=== PATIENT | male | born 1970 | race Caucasian/White ===

== ENCOUNTER 2020-12-26 17:30 | Emergency (ER) | payer OTHER ==
[~2020-12-26] VITALS: Ht 172.7 cm; Wt 133.5 kg
[2020-12-26] MEDS ORDERED: IV NORMAL SALINE 1,000ML 1,000 ML IV ONE (18:00)
--- NOTE | 2020-12-26 18:07 | PHYS DOC ---
Past History Past Medical History: Hypertension Past Surgical History: Cholecystectomy Smoking: Non-smoker Alcohol Use: Rarely Drug Use: None General Adult EDM: Chief Complaint: BLOOD IN URINE HPI: HPI: Patient is a 50 year old male with no known medical history that presents to the ED after one episode of hematuria around 1700 today. He states his urine was red in color, with no obvious clots. He does state he drinks occasionally drinks 2 liters of soda during a day. He is just wanting to get checked out because he has no history of previous episodes. No recent trauma. He denies any flank pain or urinary symptoms: urgency, dysuria, increased frequency. No fevers, chest pain, SOB, diarrhea or constipation. No tobacco or alcohol use. No recent strenuous exercise. No history of blood thinners. No other symptoms or complaints at this time. Review of Systems: Review of Systems: Constitutional: Denies fever or chills Eyes: Denies redness or eye pain HENT: Denies nasal congestion or sore throat Respiratory: Denies cough or shortness of breath Cardiovascular: Denies chest pain or palpitations GI: Denies abdominal pain, nausea, or vomiting : Denies dysuria, frequency or urgency; report hematuria Musculoskeletal: Denies back pain or joint pain Integument: Denies rash or skin lesions Neurologic: Denies headache, focal weakness or sensory changes Complete systems were reviewed and found to be within normal limits, except as documented in this note. Allergies: Allergies: Allergies Coded Allergies Type Severity Reaction Last Updated Verified No Known Drug Allergies 12/26/20 No Physical Exam: PE: Constitutional: Well developed, well nourished, no acute distress, non-toxic appearance HENT: Normocephalic, atraumatic. Slightly dry mucous membranes. Eyes: Conjunctiva normal, no discharge Neck: Normal range of motion, no tenderness, supple Lungs & Thorax: No respiratory distress, equal chest rise and fall Abdomen: Soft, no tenderness Skin: Warm, dry, no erythema, no rash Back: No tenderness, no CVA tenderness Extremities: No tenderness, ROM intact, no edema Neurologic: Alert and oriented X 3, normal motor function, normal sensory function, no focal deficits noted Psychologic: Affect normal, judgment normal Current Patient Data: Vital Signs: Vital Signs Date Time Temp Pulse Resp B/P (MAP) Pulse Ox O2 Delivery O2 Flow Rate FiO2 12/26/20 17:45 98.0 80 16 150/97 (114) 95 Room Air Radiology/Procedures: Radiology/Procedures: PROCEDURE: CT ABDOMEN PELVIS WO CONTRAST Abdominal and Pelvis CT, Without Contrast: History: Reason: hematuria / Spl. Instructions: / History: Comparison: None. Procedure: Axial images are obtained of the abdomen and pelvis, without IV or oral contrast. Oral Contrast: No Findings: There is been prior cholecystectomy. The appendix is normal. There is bilateral fat-containing inguinal canal hernias. Evaluation of solid organs is limited without contrast. Liver: Normal. Spleen: Normal. Pancreas: Normal. Adrenal Glands: Normal. Kidneys: Normal. There is no free air or free fluid. There is no lymphadenopathy. The urinary bladder appears normal. There is no pericolonic inflammation identified. The appendix is normal. Impression: No acute findings. End impression PQRS Compliance Statement: One or more of the following individualized dose reduction techniques were utilized for this examination: 1. Automated exposure control 2. Adjustment of the mA and/or kV according to patient size 3. Use of iterative reconstruction technique Electronically signed by: Gino Sweeney III, MD (12/26/2020 6:35 PM) [facility] Course & Med Decision Making: Course & Med Decision Making Pertinent Labs and Imaging studies reviewed. (See chart for details) Patient is a 50 year old male that presents after episode of gross hematuria. UA with cofirmation of hematuria. NO signs of infection noted. BUN/Creat stable. H/H stable. CT abd/pelvis without acute process. IVF hydration given. Patient stable for discharge with outpatient follow-up with PCP/Urologist. Discussed findings and plan with patient, who acknowledges understanding and agreement. Nicole Disclaimer: Nicole Disclaimer: This electronic medical record was generated, in whole or in part, using a voice recognition dictation system. Departure Departure: Impression: Primary Impression: Hematuria Qualified Codes: R31.9 - Hematuria, unspecified Disposition: 01 DC HOME SELF CARE/HOMELESS Condition: STABLE Patient Instructions: Hematuria, Adult Additional Instructions: Call your insurance for a referral for an Urologist for further evaluation and treatment. MARIO SANTAMARIA DO Dec 26, 2020 18:07
--- NOTE | 2020-12-26 18:38 | RAD ---
Abdominal and Pelvis CT, Without Contrast: History: Reason: hematuria / Spl. Instructions: / History: Comparison: None. Procedure: Axial images are obtained of the abdomen and pelvis, without IV or oral contrast. Oral Contrast: No Findings: There is been prior cholecystectomy. The appendix is normal. There is bilateral fat-containing inguin al canal hernias. Evaluation of solid organs is limited without contrast. Liver: Normal. Spleen: Normal. Pancreas: Normal. Adrenal Glands: Normal. Kidneys: Normal. There is no free air or free fluid. There is no lymphadenopathy. The urinary bladder appears normal. There is no pericolonic inflammation identified. The appendix is normal. Impression: No acute findings. End impression PQRS Compliance Statement: One or more of the following individualized dose reduction techniques were utilized for this examinat ion: 1. Automated exposure control 2. Adjustment of the mA and/or kV according to patient size 3. Use of iterative reconstruction technique Electronically signed by: Gino Sweeney III, MD (12/26/2020 6:35 PM) [facility]
[2020-12-26 18:42] LABS: BASO # 0.1 x10^3/uL (0.0-0.2); BASO % 1 % (0-3); EOS # 0.4 x10^3/uL (0.0-0.7); EOS % 4 % (0-3); HEMATOCRIT 44.9 % (39.0-53.0); HEMOGLOBIN 15.2 g/dL (13.0-17.5); LYMPH # 2.1 x10^3/uL (1.0-4.8); LYMPH % 21 % (24-48); MEAN CORPUSCULAR HEMOGLOBIN 30 pg (25-35); MEAN CORPUSCULAR HGB CONC 34 g/dL (31-37); MEAN CORPUSCULAR VOLUME 90 fL (79-100); MONO # 0.8 x10^3/uL (0.0-1.1); MONO % 8 % (0-9); NEUT # 6.6 x10^3uL (1.8-7.7); NEUT % 65 % (31-73); PLATELET COUNT 397 x10^3/uL (140-400); RED BLOOD COUNT 5.01 x10^6/uL (4.30-5.70)
[2020-12-26 18:50] LABS: CALCIUM 9.1 mg/dL (8.5-10.1); GFR 79.8; POTASSIUM 4.2 mmol/L (3.5-5.1)
[2020-12-26 18:51] LABS: BILIRUBIN,URINE NEG (NEG); CLARITY,URINE CLEAR; COLOR,URINE YELLOW; GLUCOSE,URINE NEG (NEG)
[2020-12-26 18:52] LABS: BACTERIA,URINE 0 /HPF (0-FEW); NITRITE,URINE NEG (NEG); RBC,URINE 20-40 /HPF (0-2); SQUAMOUS EPITHELIAL CELL,UR OCC /LPF; UROBILINOGEN,URINE 0.2 mg/dL (0.2 mg/dL)
[2020-12-26 18:56] LABS: ALBUMIN 3.7 g/dL (3.4-5.0); ALBUMIN/GLOBULIN RATIO 0.8 (1.0-1.7); MAGNESIUM 2.1 mg/dL (1.8-2.4); TOTAL BILIRUBIN 0.2 mg/dL (0.2-1.0); TOTAL PROTEIN 8.2 g/dL (6.4-8.2)
[2020-12-26 19:01] VITALS: BP 146/58
== END 2020-12-26 19:01 | disposition home or self-care (01) ==
LOC: ER 17:30
DX: R31.9 Hematuria, unspecified (principal); R35.0 Frequency of micturition; I10 Essential (primary) hypertension; Z90.49 Acquired absence of other specified parts of digestive tract
CPT/HCPCS: 36415; 74176; 80053; 81001; 83690; 83735; 85025; 85610; 85730; 87086; 96360; 99284; J7030

== ENCOUNTER 2022-02-24 12:55 | Emergency (ER) | payer OTHER ==
[~2022-02-24] VITALS: Ht 172.7 cm; Wt 133.5 kg
--- NOTE | 2022-02-24 13:06 | PHYS DOC ---
Past History Past Medical History: Hypertension Past Surgical History: Cholecystectomy Smoking: Non-smoker Alcohol Use: Rarely Drug Use: None Adult General Chief Complaint Chief Complaint: HYPERTENSION HPI HPI Patient is a 52-year-old male presenting to the emergency department for evaluation of hypertension. He says that he checks his blood pressure daily and it was 166/105 and this concerned him. He said that he also has been having room spinning sensation that started early this morning when he woke up around 7 to 8 am. Patient says it is more prominent when he gets up and tries to walk or move his head and that there is associated nausea. He denies any associated vomiting vision changes unilateral weakness numbness tingling. He says that he has had vertigo before in the past and that this is similar. He is in no acute distress with normal vital signs other than hypertension. He says that he has been compliant with his medication which is lisinopril 20 mg daily. Review of Systems Review of Systems Constitutional: Denies fever or chills [] Eyes: Denies change in visual acuity, redness, or eye pain [] HENT: Denies nasal congestion or sore throat [] Respiratory: Denies cough or shortness of breath [] Cardiovascular: No additional information not addressed in HPI [] GI: Denies abdominal pain. + nausea. No vomiting, bloody stools or diarrhea [] : Denies dysuria or hematuria [] Musculoskeletal: Denies back pain or joint pain [] Integument: Denies rash or skin lesions [] Neurologic: Denies headache, focal weakness or sensory changes [] All other systems were reviewed and found to be within normal limits, except as documented in this note. Allergies Allergies Allergies Coded Allergies Type Severity Reaction Last Updated Verified No Known Drug Allergies 12/26/20 No Physical Exam Physical Exam Constitutional: Well developed, well nourished, no acute distress, non-toxic appearance. [] HENT: Normocephalic, atraumatic, bilateral external ears normal, oropharynx moist, no oral exudates, nose normal. [] Eyes: PERRLA, EOMI, conjunctiva normal, no discharge. Fatigable horizontal nystagmus on rightward gaze. Neck: Normal range of motion, no tenderness, supple, no stridor [] Cardiovascular:Heart rate regular rhythm, no murmur [] Lungs & Thorax: Bilateral breath sounds clear to auscultation [] Abdomen: Bowel sounds normal, soft, no tenderness, no masses, no pulsatile masses. [] Skin: Warm, dry, no erythema, no rash. [] Back: No tenderness, no CVA tenderness. [] Extremities: No tenderness, no cyanosis, no clubbing, ROM intact, no edema. [] Neurologic: Alert and oriented X 3, normal motor function, normal sensory function, no focal deficits noted. [] EKG EKG Sinus rhythm at 71 bpm with normal axis no ST elevation or depression normal T waves Radiology/Procedures Radiology/Procedures [] Heart Score C/O Chest Pain: No Risk Factors: Risk Factors: DM, Current or recent (<one month) smoker, HTN, HLP, family history of CAD, obesity. Risk Scores: Risk Factors: DM, Current or recent (<one month) smoker, HTN, HLP, family history of CAD, obesity. Course & Med Decision Making Course & Med Decision Making I will check labs and imaging treat his vertigo and hypertension and reassess. Patient has improved hypertension to 156/85 he feels much better with no vertigo he is able to ambulate across emergency department with a normal gait. I suspect that his vertigo is peripheral with no signs of central vertigo. Head CT is negative for acute process however he did have incidental sinusitis he says that he has been treated currently with steroids for the sinusitis which would explain his leukocytosis. I told him the steroids could also increase his blood pressure and that it would be reasonable to have it rechecked as an o utpatient off the steroids but he said he is very concerned about his blood pressures he checks it frequently at home he can double his lisinopril to 40 from his 20 but he will need to have his blood pressure rechecked this week by primary care provider and if he is feeling a lightheaded or severe dizziness he will need to go down on his lisinopril. Given patient appears well with normal vital signs benign physical exam work-up and is asking to go home he will be discharged in stable condition, told to follow with primary care provider within 2 to 3 days for recheck and come back to emergency department sooner with worsening pain neurologic changes or other general concerns. Dragon Disclaimer Dragon Disclaimer This electronic medical record was generated, in whole or in part, using a voice recognition dictation system. Departure Departure: Impression: Primary Impression: Hypertension Additional Impression: Vertigo Disposition: HOME / SELF CARE / HOMELESS Condition: STABLE Referrals: DELBERT CID MD (PCP) Patient Instructions: Hypertension Scripts Lisinopril (LISINOPRIL) 40 Mg Tablet 1 TAB PO DAILY, #30 TAB 0 Refills Prov: ZAYDA WINSLOW DO 02/24/22 Problem Qualifiers Primary Impression: Hypertension Hypertension type: unspecified Qualified Codes: I10 - Essential (primary) hypertension ZAYDA WINSLOW DO Feb 24, 2022 13:06
[2022-02-24] MEDS ORDERED: cloNIDine HCL 0.1 MG TABLET PO ONE (13:30)
[2022-02-24] MEDS: diazePAM 5 MG TABLET. PO ONE ×2 (13:30→13:36)
[2022-02-24] MEDS ORDERED: MECLIZINE 12.5 MG TABLET. PO ONE (13:30)
[2022-02-24] MEDS ORDERED: ONDANSETRON PF 4 MG/2 ML VIAL. IV ONE (13:30)
[2022-02-24 13:37] VITALS: BP 158/95
--- NOTE | 2022-02-24 13:44 | RAD ---
EXAMINATION: CT head without IV contrast. INDICATION:52 years, Male, dizziness. COMPARISON: None TECHNIQUE: Spiral acquisition of contiguous images from the skull base to the vertex were obtained. S agittal and coronal 2D reformatted series were provided by the technologist. Soft tissue and bone win luz algorithms were reviewed. Exposure: One or more of the following individualized dose reduction techniques were utilized for thi s examination: 1. Automated exposure control 2. Adjustment of the mA and/or kV according to patient size 3. Use of iterative reconstruction technique. FINDINGS: Neither mass, midline shift, intracranial hemorrhage, acute/subacute ischemic changes, nor extraaxial fluid collections are seen. The brain parenchyma is normal in appearance.The ventricles are normal in size. Mucosal thickening in bilateral maxillary sinuses. Remaining paranasal sinuses, mastoid air cells, an d middle ears are clear.The orbital contents appear within normal limits. IMPRESSION: 1. No acute intracranial abnormality. 2. Bilateral maxillary sinus disease. Electronically signed by: Paula Liu MD (02/24/2022 1:41 PM) [facility]
[2022-02-24 13:52] LABS: CALCIUM 9.1 mg/dL (8.5-10.1); CREATININE 0.9 mg/dL (0.7-1.3); GFR 89.3
[2022-02-24 13:56] LABS: BASO # 0.1 x10^3/uL (0.0-0.2); BASO % 1 % (0-3); EOS # 0.2 x10^3/uL (0.0-0.7); EOS % 1 % (0-3); HEMATOCRIT 42.6 % (39.0-53.0); LYMPH # 2.6 x10^3/uL (1.0-4.8); LYMPH % 17 % (24-48); MEAN CORPUSCULAR HEMOGLOBIN 30 pg (25-35); MEAN CORPUSCULAR HGB CONC 33 g/dL (31-37); MEAN CORPUSCULAR VOLUME 91 fL (79-100); MONO % 7 % (0-9); NEUT # 11.7 x10^3uL (1.8-7.7); NEUT % 75 % (31-73); PLATELET COUNT 513 x10^3/uL (140-400); RED BLOOD COUNT 4.67 x10^6/uL (4.30-5.70); RED CELL DISTRIBUTION WIDTH 14.2 % (11.5-14.5); WHITE BLOOD COUNT 15.7 x10^3/uL (4.0-11.0)
[2022-02-24 13:57] LABS: ALBUMIN 3.6 g/dL (3.4-5.0); ALBUMIN/GLOBULIN RATIO 0.8 (1.0-1.7); TOTAL BILIRUBIN 0.2 mg/dL (0.2-1.0); TOTAL PROTEIN 8.1 g/dL (6.4-8.2)
--- NOTE | 2022-02-24 14:39 | EKG ---
[address] [address] Test Date: 2022-02-24 Test Time: 13:07:01 Pat Name: ROLAN PEREZ Department: Room: Gender: M Mechanical Maintenance Supervisor: DAGO : 1970 Requested By: ZAYDA WINSLOW Order Number: [id number] Reading MD: Bin Kumar MD Measurements Intervals [place] Rate: 69 P: 25 SC: 136 QRS: -7 QRSD: 98 T: -37 QT: 406 QTc: 437 Interpretive Statements SINUS RHYTHM Electronically Signed On 02-26-2022 7:00:14 CDT by Bin Kumar MD
[2022-02-24] MEDS ORDERED: LISI40TA6 PO (14:47)
[2022-02-24 14:50] LABS: % LYMPHS 24 % (24-48); % SEGS 76 % (35-66); PLT ESTIMATE INCREASED (ADEQUATE)
== END 2022-02-24 14:54 | disposition home or self-care (01) ==
LOC: ER 12:55
DX: I10 Essential (primary) hypertension (principal)
CPT/HCPCS: 36415; 70450; 80053; 84484; 85007; 85025; 93005; 96374; 99285; J2405